=== PATIENT | male | born 1970 | race Caucasian/White ===

== ENCOUNTER 2021-03-28 14:50 | Emergency (ER) | payer MEDICARE ==
[2021-03-28 17:35] LABS: HEMOGLOBIN 13.4 gm/dl (14.0-17.5); RED BLOOD COUNT 4.41 M/UL (4.20-5.50)
[2021-03-28 17:48] LABS: BUN/CREATININE RATIO 11 (0-10)
== END 2021-03-28 19:35 | disposition left against medical advice (07) ==
LOC: ER1 14:50
PROVIDERS: Family Medicine
DX: R42 Dizziness and giddiness (principal); H53.8 Other visual disturbances
CPT/HCPCS: 80053; 82550; 82553; 83874; 84484; 85025; 85610; 85652; 93005; 99284; Q9967